=== PATIENT | female | born 1975 | race Caucasian/White ===

== ENCOUNTER 2022-03-10 07:39 | Day surgery (SDC) | payer OTHER ==
[~2022-03-10 07:39] MED LIST: Lactated Ringers 1,000 ML IV SCH; Lidocaine 1%/Sod Bicarbonate in NS 8.4% 1 ML Syringe IDERM PRN; Sodium Chloride 0.9% 10 ML Syringe FLUSH PRN; Sodium Chloride 0.9% 10 ML Syringe FLUSH SCH
[2022-03-10] MEDS ORDERED: Midazolam 1 MG/ML 2 ML SDV ONE (08:12)
[2022-03-10] MEDS ORDERED: Propofol 200 MG/20 ML SDV ONE ×2 (08:12→08:47)
[2022-03-10] MEDS ORDERED: Lidocaine 1% 4 ML ONE (08:47)
== END 2022-03-10 10:15 | disposition home or self-care (01) ==
LOC: JD.SDS 07:39
PROVIDERS: ATTEND Surgery
DX: K64.8 Other hemorrhoids (principal); K64.4 Residual hemorrhoidal skin tags; F17.200 Nicotine dependence, unspecified, uncomplicated; Z91.048 Other nonmedicinal substance allergy status; Z90.711 Acquired absence of uterus with remaining cervical stump
CPT/HCPCS: 45378; J2250; J2704; J7120; 00811